=== PATIENT | female | born 1995 | race African-American/Black ===

== ENCOUNTER 2020-12-18 21:01 | Emergency (ER) | payer OTHER ==
[~2020-12-18] VITALS: Ht 170.2 cm; Wt 97.5 kg
[~2020-12-18 21:01] MED LIST: IBUPROFEN 600600 M1 PO
[2020-12-18 21:57] LABS: URINE BILIRUBIN NEGATIVE (Negative); URINE BLOOD TRACE (Negative); URINE CLARITY CLEAR; URINE COLOR YELLOW; URINE GLUCOSE-RANDOM* NEGATIVE (Negative); URINE KETONES NEGATIVE (Negative); URINE LEUKOCYTES-REFLEX NEGATIVE (Negative); URINE NITRITE-REFLEX NEGATIVE (Negative); URINE PROTEIN (DIPSTICK) NEGATIVE (Negative); URINE SPECIFIC GRAVITY >= 1.030 (1.005-1.035); URINE UROBILINOGEN 0.2 E.U./dl (0.2-1.0)
[2020-12-18] MEDS ORDERED: CARAFATE 1 GM TA1 G1 PO (22:35)
[2020-12-18 22:44] VITALS: BP 129/79
--- NOTE | 2020-12-19 07:06 | EKG ---
[address] [place] [address] ELECTROCARDIOGRAM REPORT Name: DARY RUSSO HORACENAI Room #: [facility]P [id number] Admission: 12/18/20 Attend Phys: Discharge: 12/18/20 Date of : [birth year] Report #: [id number] [facility] ED Test Date: 2020-12-18 Test Time: 21:03:57 Pat Name: DARY RUSSO Department: Room: Gender: F [place]: DIDI : 1995 Requested By: Bill Cabrera Order Number: [id number] MD: Lamin Villalobos Measurements Intervals [place] Rate: 102 P: 72 [place]: 164 QRS: 22 QRSD: 74 T: 107 QT: 381 QTc: 497 Interpretive Statements Sinus tachycardia Nonspecific T abnormalities, lateral leads Prolonged QT interval No previous ECG available for comparison Electronically Signed On 12-19-2020 7:05:48 CDT by Lamin Villalobos [email or web address] <ELECTRONICALLY SIGNED> By: Lamin Villalobos MD, [facility] 12/19/20 0705 210 2103 Lamin Villalobos MD, FACC /EPI
== END 2020-12-18 22:44 | disposition home or self-care (01) ==
LOC: ER 21:01
PROVIDERS: Nurse Practitioner
DX: R10.13 Epigastric pain (principal); R07.89 Other chest pain

== ENCOUNTER 2021-06-14 17:12 | Emergency (ER) | payer OTHER ==
[~2021-06-14] VITALS: Ht 167.6 cm; Wt 99.8 kg
[~2021-06-14 17:12] MED LIST changes: +CARAFATE 1 GM TA1 G1 PO
[2021-06-14 18:45] LABS: URINE BILIRUBIN 1+ (Negative); URINE BLOOD 1+ (Negative); URINE CLARITY SL CLOUDY; URINE COLOR YELLOW; URINE GLUCOSE-RANDOM* NEGATIVE (Negative); URINE KETONES NEGATIVE (Negative); URINE LEUKOCYTES-REFLEX NEGATIVE (Negative); URINE NITRITE-REFLEX NEGATIVE (Negative); URINE PROTEIN (DIPSTICK) NEGATIVE (Negative); URINE SPECIFIC GRAVITY >= 1.030 (1.005-1.035)
[2021-06-14 18:54] LABS: CASTS None Seen /LPF (None Seen); SQUAMOUS >10 Many /LPF (0-3)
[2021-06-14 18:55] LABS: CRYSTALS None Seen /LPF (None Seen); URINE RBC 3-10 Few /HPF (NONE SEEN); URINE WBC-REFLEX 0-5 Rare /HPF (0-5)
[2021-06-14 19:22] LABS: BASOPHILS 0.5 % (0.0-2.0); EOSINOPHILS 0.4 % (0.0-3.0); HEMATOCRIT 39.1 % (37.0-47.0); HEMOGLOBIN 12.9 gm/dL (12.0-15.0); LYMPHOCYTES 14.2 % (24.0-44.0); MCH 29.7 pg (26.0-34.0); MCV 90.1 fL (80.0-100.0); MONOCYTES 4.9 % (1.0-8.0); PLATELET COUNT 338 thou/uL (150-400); RBC 4.34 mil/uL (4.20-5.00); RDW 13.1 % (10.5-14.5); WBC 11.2 thou/uL (4.0-11.0)
[2021-06-14 19:25] LABS: CALCIUM 8.8 mg/dL (8.5-10.1); CREATININE 0.8 mg/dL (0.6-1.0); POTASSIUM 3.4 mmol/L (3.5-5.1)
[2021-06-14 19:32] LABS: ALBUMIN 3.3 g/dL (3.4-5.0); TOTAL BILIRUBIN 0.3 mg/dL (0.2-1.0); TOTAL PROTEIN 7.2 g/dL (6.4-8.2)
[2021-06-14 20:53] VITALS: BP 108/43
== END 2021-06-14 20:55 | disposition home or self-care (01) ==
LOC: ER 17:12
PROVIDERS: Emergency Medicine; Nurse Practitioner
DX: R10.30 Lower abdominal pain, unspecified (principal)